=== PATIENT | female | born 1955 | race Caucasian/White ===

== ENCOUNTER 2020-12-02 10:31 | Outpatient (CLI) | payer OTHER | END 2020-12-02 10:34 | disposition HB | LOC: SONOGRAMA 10:31 → MAMO-SONO 10:45 | PROVIDERS: ATTEND Specialist | DX: N83.291 Other ovarian cyst, right side (principal) ==

== ENCOUNTER 2021-04-03 08:46 | Day surgery (SDC) | payer OTHER ==
[~2021-04-03 08:46] MED LIST: HYZAAR 50-12.51 EACH PO; SYNTHROID88 MCG PO
[2021-04-03] MEDS ORDERED: PERCOCET 5-3251 EACH PO (15:08)
== END 2021-04-03 17:40 | disposition home or self-care (01) ==
LOC: CIR.AMB 08:46
PROVIDERS: ATTEND Obstetrics & Gynecology Gynecology
DX: N83.291 Other ovarian cyst, right side (principal); Z20.822 Contact with and (suspected) exposure to COVID-19